=== PATIENT | female | born 1975 | race Caucasian/White ===

== ENCOUNTER 2016-07-06 10:04 | Outpatient (CLI) | payer OTHER ==
[2016-07-06 10:22] VITALS: BP 135/83
== END 2016-07-06 11:55 | disposition home or self-care (01) ==
LOC: SDP SRH 10:04 → OB SRH 10:04 → SDP SRH 11:55
PROC: 05993ZZ Drainage of Right Brachial Vein, Percutaneous Approach (ICD-10-PCS; principal; 2016-07-06)
DX: D75.1 Secondary polycythemia (principal)